=== PATIENT | male | born 1985 | race Caucasian/White ===

== ENCOUNTER 2019-04-04 22:44 | Emergency (ER) | payer OTHER ==
[~2019-04-04] VITALS: Ht 175.3 cm; Wt 90.0 kg
[~2019-04-04 22:44] MED LIST: METOPROL TAR25 MG PO; NIFEDICAL XL30 MG PO; NO HOME MEDS; ZITHROMAX500 MG OR
[2019-04-04 23:30] VITALS: BP 172/82
== END 2019-04-04 23:30 | disposition home or self-care (01) | DRG 605 ==
LOC: ED 22:44
PROC: 0HQGXZZ Repair Left Hand Skin, External Approach (ICD-10-PCS; principal; 2019-04-04)
DX: S61.211A Laceration without foreign body of left index finger without damage to nail, initial encounter (principal); I10 Essential (primary) hypertension; F17.210 Nicotine dependence, cigarettes, uncomplicated; W26.8XXA Contact with other sharp object(s), not elsewhere classified, initial encounter; Y92.008 Other place in unspecified non-institutional (private) residence as the place of occurrence of the external cause; Y93.89 Activity, other specified

== ENCOUNTER 2020-04-06 09:41 | Emergency (ER) | payer OTHER ==
[~2020-04-06] VITALS: Ht 175.3 cm; Wt 102.0 kg
[2020-04-06] MEDS ORDERED: METOPROLOL TAR100 MG PO (10:08)
[2020-04-06] MEDS ORDERED: NORVASC10 M1 PO (10:09)
[2020-04-06 10:35] LABS: HEMATOCRIT 49.2 % (39.0-50.0); HEMOGLOBIN 16.4 g/dl (14.0-18.0); IMMATURE GRANULOCYTES 0.4 % (0.0-5.0); MEAN CELL VOLUME 84.5 fL CALC (80.0-100.0); MEAN CORPUSCULAR HGB 28.2 pG CALC (26.0-32.0); MEAN CORPUSCULAR HGB CONC 33.3 g/dL CAL (32.0-36.0); NEUT# 9.93 thou/uL (1.82-7.42); RED BLOOD COUNT 5.82 mill/uL (4.70-6.10); RED CELL DISTRI WIDTH 13.2 % (11.5-15.5)
[2020-04-06 10:47] LABS: ANION GAP 13 (6-22 (CALC)); BUN 13 mg/dL (9-20); BUN/CREATININE RATIO 15 (12-20 (CALC)); CARBON DIOXIDE 24 mmol/l (22-30); CHLORIDE 107 mmol/l (95-108); CREATININE 0.9 mg/dL (0.7-1.3); GFR > 60 ML/MIN (>=60 (CALC)); GFR FOR AFR.AMER. > 60 ML/MIN (>=60 (CALC)); POTASSIUM 3.8 mmol/l (3.5-5.1); SODIUM 141 mmol/l (137-146)
[2020-04-06 11:37] VITALS: BP 174/96
== END 2020-04-06 11:53 | disposition home or self-care (01) | DRG 313 ==
LOC: ED 09:41
PROVIDERS: Family Medicine
DX: R07.9 Chest pain, unspecified (principal); I10 Essential (primary) hypertension; F17.200 Nicotine dependence, unspecified, uncomplicated

== ENCOUNTER 2022-08-03 09:16 | Emergency (ER) | payer OTHER ==
[~2022-08-03] VITALS: Ht 175.3 cm; Wt 106.0 kg
[~2022-08-03 09:16] MED LIST changes: +METOPROLOL TAR100 MG PO; +NORVASC10 M1 PO
[2022-08-03 09:33] VITALS: BP 202/118
[2022-08-03 09:34] VITALS: BP 213/133
[2022-08-03 09:39] VITALS: BP 170/119
[2022-08-03 09:45] VITALS: BP 187/126
[2022-08-03 09:55] LABS: BASO% 0.4 % (0-3); EOS% 3.7 % (0-8); HEMATOCRIT 51.8 % (39.0-50.0); HEMOGLOBIN 17.2 g/dl (14.0-18.0); IMMATURE GRANULOCYTES 0.2 % (0.0-5.0); LYMPH% 15.8 % (15-41); MEAN CELL VOLUME 85.2 fL CALC (80.0-100.0); MEAN CORPUSCULAR HGB 28.3 pG CALC (26.0-32.0); MEAN CORPUSCULAR HGB CONC 33.2 g/dL CAL (32.0-36.0); MONO% 6.4 % (2-13); NEUT# 9.08 thou/uL (1.82-7.42); NEUT% 73.5 % (42-76); RED BLOOD COUNT 6.08 mill/uL (4.70-6.10)
[2022-08-03 10:00] VITALS: BP 177/131
[2022-08-03 10:09] LABS: ALKALINE PHOSPHATASE 66 u/l (38-126); ANION GAP 14 (6-22 (CALC)); BILIRUBIN, TOTAL 0.6 mg/dL (0.2-1.3); BUN 14 mg/dL (9-20); BUN/CREATININE RATIO 17 (12-20 (CALC)); CARBON DIOXIDE 26 mmol/l (22-30); CHLORIDE 106 mmol/l (95-108); CREATININE 0.9 mg/dL (0.7-1.3); GFR FOR AFR.AMER. > 60 ML/MIN (>=60 (CALC)); GFR OTHER RACES > 60 ML/MIN (>=60 (CALC)); POTASSIUM 3.6 mmol/l (3.5-5.1); SGOT/AST 29 u/l (17-59); SODIUM 142 mmol/l (137-146); TOTAL PROTEIN 8.1 g/dL (6.3-8.2)
[2022-08-03 11:34] VITALS: BP 177/131
== END 2022-08-03 11:35 | disposition home or self-care (01) | DRG 605 ==
LOC: ED 09:16
PROVIDERS: Family Medicine
DX: S30.0XXA Contusion of lower back and pelvis, initial encounter (principal); S20.229A Contusion of unspecified back wall of thorax, initial encounter; R07.81 Pleurodynia; I10 Essential (primary) hypertension; F17.200 Nicotine dependence, unspecified, uncomplicated; V43.52XA Car driver injured in collision with other type car in traffic accident, initial encounter

== ENCOUNTER 2022-09-08 09:46 | Emergency (ER) | payer OTHER | END 2022-09-08 10:00 | disposition left against medical advice (07) | DRG 951 | LOC: ED 09:46 → LWOBS 10:13 | DX: Z53.21 Procedure and treatment not carried out due to patient leaving prior to being seen by health care provider (principal) ==

== ENCOUNTER 2022-09-09 12:00 | Emergency (ER) | payer OTHER ==
[~2022-09-09] VITALS: Ht 175.3 cm; Wt 90.0 kg
== END 2022-09-09 12:26 | disposition left against medical advice (07) | DRG 392 ==
LOC: ED 12:00
DX: R10.13 Epigastric pain (principal); I10 Essential (primary) hypertension; F17.200 Nicotine dependence, unspecified, uncomplicated; Z53.29 Procedure and treatment not carried out because of patient's decision for other reasons

== ENCOUNTER 2023-11-20 11:44 | Emergency (ER) | payer OTHER ==
[2023-11-20] VITALS (9 sets, daily range): BP systolic 131–153; BP diastolic 88–103
[~2023-11-20] VITALS: Ht 175.3 cm; Wt 102.0 kg
[2023-11-20] MEDS ORDERED: LIDOcaine HCl 1% (Local Anesth.) 20 ML VIAL STI STA (12:44)
[2023-11-20] MEDS ORDERED: SODIUM CHLORIDE 500 ML BTL IR ONE (12:45)
[2023-11-20] MEDS ORDERED: POVIDONE IODINE 0.5 OZ/BTL TOP ONE (12:45)
[2023-11-20] MEDS ORDERED: NEOMYCIN-BACITRACIN-POLYMYXIN 0.5 GM/PAK PAK TOP ONE (12:45)
[2023-11-20] MEDS ORDERED: BACTRIM DS1 TAB PO (13:15)
== END 2023-11-20 13:28 | disposition home or self-care (01) | DRG 605 ==
LOC: ED 11:44
PROC: 0HQFXZZ Repair Right Hand Skin, External Approach (ICD-10-PCS; principal; 2023-11-20)
DX: S61.011A Laceration without foreign body of right thumb without damage to nail, initial encounter (principal); I10 Essential (primary) hypertension; F17.200 Nicotine dependence, unspecified, uncomplicated; W26.8XXA Contact with other sharp object(s), not elsewhere classified, initial encounter; Y92.009 Unspecified place in unspecified non-institutional (private) residence as the place of occurrence of the external cause